=== PATIENT | female | born 1945 | race Caucasian/White ===

== ENCOUNTER → 2017-12-20 | Outpatient (CLI) | payer MEDICARE, BC ==
[~2017-12-20] MED LIST: HYDROCODONE-APA1 TA1 PO; NORCO 5-325 TA1 EACH PO; ZOFRAN ODT4 MG DISSOLVE
== END ==
LOC: M.RAD 12:23
DX: M51.36 Other intervertebral disc degeneration, lumbar region (principal); M50.323 Other cervical disc degeneration at C6-C7 level; M12.88 Other specific arthropathies, not elsewhere classified, other specified site; M54.5 Low back pain; Z87.891 Personal history of nicotine dependence

== ENCOUNTER → 2019-02-15 | Outpatient (CLI) | payer MEDICARE, BC | LOC: M.MRI 07:09 | DX: S83.241A Other tear of medial meniscus, current injury, right knee, initial encounter (principal); S83.011A Lateral subluxation of right patella, initial encounter; X58.XXXA Exposure to other specified factors, initial encounter; Y93.89 Activity, other specified; Y92.89 Other specified places as the place of occurrence of the external cause; Y99.8 Other external cause status; M25.461 Effusion, right knee ==

== ENCOUNTER → 2020-07-22 | Outpatient (CLI) | payer MEDICARE, BC | LOC: M.RAD 10:24 | PROVIDERS: ATTEND Family Medicine | DX: S32.038A Other fracture of third lumbar vertebra, initial encounter for closed fracture (principal); M47.816 Spondylosis without myelopathy or radiculopathy, lumbar region; M16.11 Unilateral primary osteoarthritis, right hip; M25.78 Osteophyte, vertebrae; M48.061 Spinal stenosis, lumbar region without neurogenic claudication; X58.XXXA Exposure to other specified factors, initial encounter; Y93.89 Activity, other specified; Y92.89 Other specified places as the place of occurrence of the external cause; Y99.8 Other external cause status ==